=== PATIENT | female | born 1980 | race Caucasian/White ===

== ENCOUNTER 2021-09-05 06:00 | Day surgery (SDC) | payer OTHER ==
[~2021-09-05 06:00] MED LIST: PERCOCET 5/3251 TAB PO
[2021-09-05] MEDS ORDERED: PRENA1 TRUE CO1 EACH (06:43)
== END 2021-09-05 16:55 | disposition home or self-care (01) ==
LOC: CIR.AMB 06:00
PROVIDERS: ATTEND Specialist
DX: O03.4 Incomplete spontaneous abortion without complication (principal); Z91.013 Allergy to seafood; Z91.041 Radiographic dye allergy status; J45.909 Unspecified asthma, uncomplicated

== ENCOUNTER 2021-09-05 06:11 | Emergency (ER) | payer OTHER ==
[~2021-09-05] VITALS: Ht 162.6 cm; Wt 50.8 kg
[2021-09-05] MEDS ORDERED: PRENA1 TRUE CO1 EACH (06:43)
== END 2021-09-05 09:46 | disposition home or self-care (01) ==
LOC: ER 06:11
DX: O20.9 Hemorrhage in early pregnancy, unspecified (principal); Z3A.01 Less than 8 weeks gestation of pregnancy; Z88.8 Allergy status to other drugs, medicaments and biological substances; Z91.013 Allergy to seafood